=== PATIENT | male | born 1960 | race Asian ===

== ENCOUNTER 2025-04-24 10:30 | Inpatient (IN) | payer OTHER ==
[~2025-04-24] VITALS: Ht 167.6 cm; Wt 66.6 kg
[2025-04-24 11:41] LABS: PLATELET COUNT (AUTO) 189 K/uL (150-450); RED BLOOD CELL COUNT(AUTO) 3.63 MIL/uL (4.50-5.90); RED CELL DISTRIBUTION WIDTH 12.3 % (11.5-14.5); WHITE BLOOD COUNT (AUTO) 6.7 K/uL (4.5-11.0)
[2025-04-24 11:49] LABS: CALCIUM, TOTAL 7.6 mg/dL (8.8-10.5); CREATININE 1.21 mg/dL (0.60-1.30); GLOMERULAR FILTR. RATE CALC 60.0 mL/min (>60); GLUCOSE,RANDOM 120.0 mg/dL (70-110); SODIUM SERUM 141.0 mmol/L (136-145); UREA NITROGEN, BLOOD 53.0 mg/dL (7-18)
[2025-04-24 11:53] LABS: ASPARTATE AMINOTRANSFERASE 15.0 U/L (15-37); TOTAL PROTEIN, SERUM 5.8 g/dL (6.4-8.2)
[2025-04-24 11:56] LABS: TROPONIN I-HIGH SENSITIVITY 5 ng/L (<76)
[2025-04-24 12:08] LABS: APPEARANCE,URINE CLEAR (CLEAR); GLUCOSE, URINE (UA) NEGATIVE (NEGATIVE); LEUKOCYTE ESTERASE ,URINE NEGATIVE (NEGATIVE); NITRATE,URINE NEGATIVE (NEGATIVE); OCCULT BLOOD,URINE NEGATIVE (NEGATIVE); SPECIFIC GRAVITIY, URINE 1.026 (1.003-1.030)
[2025-04-24] MEDS: PANTOPRAZOLE SODIUM 80 MG in SODIUM CHLORIDE 0.9% 100 ML IV SCH (14:15)
[2025-04-24] MEDS: PANTOPRAZOLE SODIUM 40 MG/VIAL IVP ONE ×2 (14:27→15:42)
[2025-04-24] MEDS ORDERED: ONDANSETRON HCL 4 MG/2 ML VIAL IVP PRN (16:00)
[2025-04-24] MEDS ORDERED: ACETAMINOPHEN 325 MG TABLET PO PRN (16:00)
[2025-04-24 17:04] LABS: PLATELET COUNT (AUTO) 191 K/uL (150-450); RED BLOOD CELL COUNT(AUTO) 3.20 MIL/uL (4.50-5.90); RED CELL DISTRIBUTION WIDTH 11.9 % (11.5-14.5); WHITE BLOOD COUNT (AUTO) 9.2 K/uL (4.5-11.0)
[2025-04-24 18:55] VITALS: BP 112/82; PULSE 87; RESP 16; TEMP 99
[2025-04-24] MEDS: SODIUM CHLORIDE 0.9% 1,000 ML IV ONE (19:01)
[2025-04-24 19:10] VITALS: BP 106/77; PULSE 90; RESP 16; TEMP 98.4
[2025-04-24 19:25] VITALS: BP 108/79; PULSE 85; RESP 16; TEMP 98.3
[2025-04-24 19:40] VITALS: BP 100/78; PULSE 89; RESP 16; TEMP 98.5
[2025-04-24 19:55] VITALS: BP 110/82; PULSE 90; RESP 16; TEMP 98.2
[2025-04-24] MEDS: DOCUSATE SODIUM 100 MG CAPSULE PO SCH (21:00)
[2025-04-24 21:15] VITALS: BP 86/72; PULSE 87; RESP 16; TEMP 98; O2SAT 99
[2025-04-24] MEDS ORDERED: AMLO-257 PO (22:20)
[2025-04-24] MEDS ORDERED: IRBE150T51 PO (22:22)
[2025-04-24] MEDS ORDERED: ROSU10TA98 PO (22:22)
[2025-04-24 23:34] LABS: PLATELET COUNT (AUTO) 172 K/uL (150-450); RED BLOOD CELL COUNT(AUTO) 2.86 MIL/uL (4.50-5.90); RED CELL DISTRIBUTION WIDTH 12.6 % (11.5-14.5); WHITE BLOOD COUNT (AUTO) 10.7 K/uL (4.5-11.0)
[2025-04-25] VITALS (27 sets, daily range): BP systolic 65–139; BP diastolic 44–115; PULSE 86–119; RESP 12–20; TEMP 97–98.5; O2SAT 96–99
[2025-04-25] MEDS ORDERED: PANTOPRAZOLE SODIUM 80 MG in SODIUM CHLORIDE 0.9% 100 ML IV SCH (00:15)
[2025-04-25] MEDS: PANTOPRAZOLE SODIUM 80 MG in SODIUM CHLORIDE 0.9% 100 ML IV SCH (03:01)
[2025-04-25 07:21] LABS: PLATELET COUNT (AUTO) 158 K/uL (150-450); RED BLOOD CELL COUNT(AUTO) 2.89 MIL/uL (4.50-5.90); RED CELL DISTRIBUTION WIDTH 13.3 % (11.5-14.5); WHITE BLOOD COUNT (AUTO) 10.9 K/uL (4.5-11.0)
[2025-04-25] MEDS ORDERED: SODIUM CHLORIDE 0.9% 1,000 ML IV ONE (08:07)
[2025-04-25] MEDS: SODIUM CHLORIDE 0.9% 1,000 ML IV ONE ×2 (09:12→14:00)
[2025-04-25 10:02] LABS: PLATELET COUNT (AUTO) 147 K/uL (150-450); RED BLOOD CELL COUNT(AUTO) 2.50 MIL/uL (4.50-5.90); RED CELL DISTRIBUTION WIDTH 13.6 % (11.5-14.5); WHITE BLOOD COUNT (AUTO) 9.9 K/uL (4.5-11.0)
[2025-04-25] MEDS ORDERED: SODIUM CHLORIDE 0.9% 250 ML IV ONE (11:37)
[2025-04-25] MEDS ORDERED: PROPOFOL 1% 20 ML VIAL IVP ONE (12:00)
[2025-04-25] MEDS ORDERED: LIDOCAINE/PF 2% 5 ML VIAL ONE (12:00)
[2025-04-25] MEDS ORDERED: SODIUM CHLORIDE 0.9% 1,000 ML ONE (12:11)
[2025-04-25 18:00] LABS: PLATELET COUNT (AUTO) 104 K/uL (150-450); RED BLOOD CELL COUNT(AUTO) 3.38 MIL/uL (4.50-5.90); RED CELL DISTRIBUTION WIDTH 17.7 % (11.5-14.5); WHITE BLOOD COUNT (AUTO) 12.5 K/uL (4.5-11.0)
[2025-04-25 23:47] LABS: PLATELET COUNT (AUTO) 110 K/uL (150-450); RED BLOOD CELL COUNT(AUTO) 2.56 MIL/uL (4.50-5.90); RED CELL DISTRIBUTION WIDTH 17.5 % (11.5-14.5); WHITE BLOOD COUNT (AUTO) 12.3 K/uL (4.5-11.0)
[2025-04-26] VITALS: BP 82/60; PULSE 106; PULSE 107; RESP 22; TEMP 98.1; O2SAT 98
[2025-04-26] MEDS ORDERED: SODIUM CHLORIDE 0.9% 500 ML IV ONE (00:07)
[2025-04-26] MEDS: OCTREOTIDE ACETATE 100 MCG/ML VIAL IVP ONE (00:22)
[2025-04-26 00:25] VITALS: BP 88/55; PULSE 106; RESP 22; TEMP 98
[2025-04-26] MEDS: TRANEXAMIC ACID 1,000 MG/10 ML VIAL IVP ONE (00:38)
[2025-04-26 00:40] VITALS: BP 85/55; PULSE 105; RESP 20; TEMP 98
[2025-04-26 00:55] VITALS: BP 90/65; PULSE 103; RESP 21; TEMP 98.1
[2025-04-26] MEDS ORDERED: SODIUM CHLORIDE 0.9% 250 ML IV ONE (00:57)
[2025-04-26] MEDS: OCTREOTIDE ACETATE 500 MCG in SODIUM CHLORIDE 0.9% 97.5 ML IV SCH (01:35)
[2025-04-26] MEDS: ALBUMIN HUMAN 5%-12.5GM/250ML 250 ML IV ONE (02:20)
[2025-04-26] MEDS: PHENYLEPHRINE 200 MG/D5%-WATER 250 ML IV PRN (02:21)
== END 2025-04-26 02:30 | disposition short-term general hospital (02) | DRG 241 ==
LOC: EMS 10:30 → EDH 15:51 → 5S 21:35 → ICU 04-25 11:30
PROVIDERS: ADMIT Internal Medicine; ATTEND Internal Medicine
PROC: 30233N1 Transfusion of Nonautologous Red Blood Cells into Peripheral Vein, Percutaneous Approach (ICD-10-PCS; 2025-04-24)
PROC: 0W3P8ZZ Control Bleeding in Gastrointestinal Tract, Via Natural or Artificial Opening Endoscopic (ICD-10-PCS; 2025-04-25)
PROC: XW0G886 Introduction of Mineral-based Topical Hemostatic Agent into Upper GI, Via Natural or Artificial Opening Endoscopic, New Technology Group 6 (ICD-10-PCS; principal; 2025-04-25 15:00)
DX: K26.4 Chronic or unspecified duodenal ulcer with hemorrhage (principal); N17.0 Acute kidney failure with tubular necrosis; R57.8 Other shock; D69.59 Other secondary thrombocytopenia; R65.11 Systemic inflammatory response syndrome (SIRS) of non-infectious origin with acute organ dysfunction; K25.4 Chronic or unspecified gastric ulcer with hemorrhage; I95.9 Hypotension, unspecified; D62 Acute posthemorrhagic anemia; E78.00 Pure hypercholesterolemia, unspecified; I10 Essential (primary) hypertension; Z60.3 Acculturation difficulty; Z85.528 Personal history of other malignant neoplasm of kidney; Z90.5 Acquired absence of kidney
CPT/HCPCS: 74176; 80053; 81003; 82271; 83690; 84484; 85025; 85610; 86850; 86900; 86901; 86923; 87081; 93005; 96365; 99285; J2354; J2370; J2470; J2704; J3490; J7030; J7040; J7050; P9016; P9041